=== PATIENT | female | born 1945 ===

== ENCOUNTER 2017-08-28 09:54 | Day surgery (SDC) | payer MEDICARE ==
[2017-08-28] MEDS ORDERED: Propofol 10 mg/ml Inj (20 ML) ONE (11:38)
[2017-08-28] MEDS ORDERED: Midazolam 2 MG/2 ML VIAL ONE (11:39)
[2017-08-28] MEDS ORDERED: HYDROmorphone 0.5 mg/0.5 ml ISec IVP PRN (11:52)
--- NOTE | 2017-08-28 12:35 | PCM.SURG1 ---
Surgeon's Initial Post Op Note - Surgeon's Notes Surgeon: Dr. Mejia Insurance Manager: None Type of Anesthesia: General LMA Anesthesia Administered By: Dr. Rao Pre-Operative Diagnosis: 70 yo with Postmenopausal bleeding, endometrial polyp Operative Findings: Av uterus 5-6 wks Post-Operative Diagnosis: Same as above Operation Performed: Hysteroscopy Myosure D and C Specimen/Specimens Removed: Polyp, emc,ecc Estimated Blood Loss: EBL {In ML}: 5 Blood Products Given: N/A Drains Used: No Drains Post-Op Condition: Good Date of Surgery/Procedure: 08/28/17 Time of Surgery/Procedure: 12:35
[2017-08-28 13:14] VITALS: RESP 18
[2017-08-28 13:43] VITALS: BP 150/62; PULSE 77; TEMP 97.8; O2SAT 98
--- NOTE | 2017-08-28 23:22 | OP ---
PROCEDURE DATE: 08/28/2017 PREOPERATIVE DIAGNOSES: A 71-year-old female with postmenstrual bleeding, irregular menstrual period, and endometrial polyp. POSTOPERATIVE DIAGNOSES: A 71-year-old female with postmenstrual bleeding, irregular menstrual period, and endometrial polyp. PROCEDURE: Hysteroscopy, MyoSure, dilatation and curettage. SURGEON: Fabiola Mejia MD TYPE OF ANESTHESIA: General LMA. FINDINGS: Anteverted uterus approximately 8-weeks gestation. COMPLICATIONS: None. ESTIMATED BLOOD LOSS: Approximately 10 mL. IV FLUIDS: 500 mL. INPUTS AND OUTPUTS: 100 mL. SPECIMEN: EMC, ECC, and polyp. DESCRIPTION OF PROCEDURE: The patient was informed of the risk factors, benefits, and alternatives of the procedure. Risk factors included infection, bleeding, damage to the surrounding organs and tissues, complication from anesthesia and possible . After informed consent was obtained, she was then taken to the operating room, prepped and draped in a normal sterile fashion, placed in a dorsal lithotomy position. A weighted speculum was placed into the vagina. The anterior lip of the cervix was grasped with a single-toothed tenaculum. The uterus was gently sounded to approximately 8 cm. Upon complete uterine dilatation, the scope was then placed. A complete surveillance of the uterine cavity was then performed. The MyoSure device was then activated. Under direct visualization, endometrial polyp was then removed and submitted to Pathology. In that particular instance, the MyoSure device was removed and a fractional D and C was performed. EMC and ECC were submitted to Pathology. Excellent hemostasis. Upon completion, all instruments were removed from the vagina. Instrument and lap counts were correct x2. The patient was then taken to recovery room in stable condition, and instructed to follow up in the office in approximately two weeks. Fabiola Mejia MD
== END 2017-08-28 14:45 | disposition home or self-care (01) ==
LOC: C.SDS 09:54
PROVIDERS: ATTEND Obstetrics & Gynecology
DX: N92.6 Irregular menstruation, unspecified (principal); N92.0 Excessive and frequent menstruation with regular cycle; E03.9 Hypothyroidism, unspecified; E11.9 Type 2 diabetes mellitus without complications; I10 Essential (primary) hypertension; Z86.79 Personal history of other diseases of the circulatory system; M19.90 Unspecified osteoarthritis, unspecified site; E78.00 Pure hypercholesterolemia, unspecified; Z79.84 Long term (current) use of oral hypoglycemic drugs; E55.9 Vitamin D deficiency, unspecified; E53.8 Deficiency of other specified B group vitamins; R00.1 Bradycardia, unspecified; E87.6 Hypokalemia
CPT/HCPCS: 58558; 88305; J2250; J2704; J3010

== ENCOUNTER 2018-09-05 10:34 | Outpatient (CLI) | payer MEDICARE | END 2018-09-05 10:35 | disposition home or self-care (01) | LOC: C.DEXAIC 10:34 | DX: M85.89 Other specified disorders of bone density and structure, multiple sites (principal) ==